=== PATIENT | male | born 1945 | race Caucasian/White ===

== ENCOUNTER 2021-08-16 12:07 | Observation (INO) | payer OTHER ==
[2021-08-16] MEDS ORDERED: Sodium Chloride 0.9% 10 ML Syringe FLUSH PRN (12:35)
[2021-08-16] MEDS ORDERED: Sodium Chloride 0.9% 2.5 ML Syringe FLUSH PRN (12:35)
[2021-08-16 13:52] LABS: BLOOD UREA NITROGEN,BUN 12 mg/dL (7.0-18.0); CARBON DIOXIDE,CO2 24.7 mmol/L (21.0-32.0); CHLORIDE,CL 98 mmol/L (98-107); GLUCOSE RANDOM 113 mg/dL (74-106); POTASSIUM,K 3.8 mmol/L (3.5-5.1); SODIUM,NA 133 mmol/L (136-148)
[2021-08-16] MEDS ORDERED: Iopamidol 755 MG/ML 500 ML Multipack Bottle IVPUSH STA (16:38)
[2021-08-16] MEDS ORDERED: Piperacillin/Tazobactam 3.375 GM in Sodium Chloride 0.9% 50 ML IV ONE (19:05)
[2021-08-16] MEDS ORDERED: 50% Dextrose in Water 50 ML Syringe IVPUSH PRN (22:56)
[2021-08-16] MEDS ORDERED: Glucagon,Human Recombinant 1 MG Vial IM PRN (22:56)
[2021-08-16] MEDS: Insulin Aspart 100 Units/ML 3 ML Pen SUBCUT SCH (23:29)
[2021-08-16] MEDS: Sodium Chloride 0.9% 1,000 ML IV SCH (23:30)
[2021-08-17] MEDS: Piperacillin/Tazobactam 3.375 GM in Sodium Chloride 0.9% 50 ML IV SCH ×2 (00:26→06:26)
[2021-08-17] MEDS: Insulin Aspart 100 Units/ML 3 ML Pen SUBCUT SCH (05:24)
[2021-08-17 07:32] LABS: BLOOD UREA NITROGEN,BUN 13 mg/dL (7.0-18.0); CARBON DIOXIDE,CO2 21.4 mmol/L (21.0-32.0); CHLORIDE,CL 101 mmol/L (98-107); GLUCOSE RANDOM 113 mg/dL (74-106); POTASSIUM,K 3.6 mmol/L (3.5-5.1); SODIUM,NA 136 mmol/L (136-148)
[2021-08-17] MEDS: Sodium Chloride 0.9% 1,000 ML IV SCH (09:09)
== END 2021-08-17 13:35 | disposition home or self-care (01) ==
LOC: MW.ED 12:07 → MW.MS 18:56
PROVIDERS: ADMIT Internal Medicine; ATTEND Internal Medicine
DX: R41.82 Altered mental status, unspecified (principal); K81.0 Acute cholecystitis; K21.9 Gastro-esophageal reflux disease without esophagitis; N40.0 Benign prostatic hyperplasia without lower urinary tract symptoms; E11.9 Type 2 diabetes mellitus without complications; Z79.84 Long term (current) use of oral hypoglycemic drugs; Z79.899 Other long term (current) drug therapy; Z87.891 Personal history of nicotine dependence; Z20.822 Contact with and (suspected) exposure to COVID-19
CPT/HCPCS: 36415; 70450; 70450-26; 71045; 71045-26; 74177; 74177-26; 76705; 76705-26; 80053; 80305-QW; 80307; 81001; 82140; 82947; 83605; 84484; 85025; 85610; 87040; 87086; 87804; 93005; 96365; 96376; 99285-25; G0378; J1815-GY; J2543; J7030; Q9967; U0002

== ENCOUNTER 2021-09-26 08:23 | Day surgery (SDC) | payer OTHER ==
[~2021-09-26 08:23] MED LIST: Albuterol 0.083% 2.5 MG/3 ML Neb Soln NEB PRN; HYDROmorphone 1 MG/ML Syringe IVPUSH PRN; Lactated Ringers 1,000 ML IV SCH; Metoclopramide 10 MG/2 ML SDV IVPUSH PRN; Naloxone 0.4 MG/ML SDV IVPUSH PRN; Ondansetron 4 MG/2 ML SDV IVPUSH PRN; cefOXitin 2 GM in Premix Bag 1 BAG IV ONE; fentaNYL 100 MCG/2 ML SDV IVPUSH PRN
[2021-09-26] MEDS ORDERED: Bupivacaine 0.5% 30 ML SDV ONE (09:14)
[2021-09-26] MEDS ORDERED: ceFAZolin 1 GM Vial ONE (09:14)
[2021-09-26] MEDS ORDERED: Propofol 200 MG/20 ML SDV ONE ×2 (09:29→11:03)
[2021-09-26] MEDS ORDERED: fentaNYL 250 MCG/5 ML SDV ONE ×3 (09:29→11:04)
[2021-09-26] MEDS ORDERED: Sugammadex Sodium 200 MG/2 ML VIAL ONE (10:45)
[2021-09-26] MEDS ORDERED: Rocuronium Bromide 50 MG/5 ML Syringe ONE (10:45)
[2021-09-26] MEDS ORDERED: Glycopyrrolate 0.2 MG/ML SDV ONE (10:45)
[2021-09-26] MEDS ORDERED: ePHEDrine 50 MG/ML SDV ONE (10:45)
[2021-09-26] MEDS ORDERED: Dexamethasone 4 MG/ML 5 ML MDV ONE (10:45)
[2021-09-26] MEDS ORDERED: Ondansetron 4 MG/2 ML SDV ONE (10:45)
[2021-09-26] MEDS ORDERED: Acetaminophen/HYDROcodone 325-5 MG Tab PO PRN (11:17)
[2021-09-26] MEDS ORDERED: Morphine 4 MG/ML VIAL IVPUSH PRN (11:17)
[2021-09-26] MEDS ORDERED: Lactated Ringers 1,000 ML IV SCH (11:30)
== END 2021-09-26 13:15 | disposition home or self-care (01) ==
LOC: MW.SDS 08:23
PROVIDERS: ATTEND Surgery
DX: K80.10 Calculus of gallbladder with chronic cholecystitis without obstruction (principal); Z79.899 Other long term (current) drug therapy; Z98.890 Other specified postprocedural states
CPT/HCPCS: 47562; 82947; J0131; J1100; J2405; J2704; J3010; J3490; J7030; J7120; 00790; 99100; J0690